=== PATIENT | male | born 1990 | race Caucasian/White ===

== ENCOUNTER 2021-02-12 10:54 | Emergency (ER) | payer OTHER ==
[~2021-02-12] VITALS: Ht 172.7 cm; Wt 93.9 kg
[2021-02-12] MEDS ORDERED: ALBU8.5H INH (10:59)
[2021-02-12 12:03] VITALS: BP 160/102
--- NOTE | 2021-02-14 05:48 | ECGEPIP ---
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
== END 2021-02-12 12:10 | disposition home or self-care (01) ==
LOC: M ED 10:54
DX: T75.4XXA Electrocution, initial encounter (principal); W86.8XXA Exposure to other electric current, initial encounter; Y92.89 Other specified places as the place of occurrence of the external cause; Y93.89 Activity, other specified; Y99.8 Other external cause status; F17.200 Nicotine dependence, unspecified, uncomplicated; Z86.79 Personal history of other diseases of the circulatory system